=== PATIENT | female | born 1960 | race Caucasian/White ===

== ENCOUNTER 2016-09-15 09:44 | Outpatient (CLI) | payer BC ==
[2015-02-01 10:28] VITALS: O2SAT 97
== END 2016-09-15 09:45 | disposition home or self-care (01) ==
LOC: CONVCARE 09:44
PROVIDERS: ATTEND Orthopaedic Surgery
DX: Z47.1 Aftercare following joint replacement surgery (principal); Z96.653 Presence of artificial knee joint, bilateral; M25.562 Pain in left knee
CPT/HCPCS: 73562

== ENCOUNTER 2017-04-13 08:20 | Outpatient (CLI) | payer BC ==
[2015-02-01 10:28] VITALS: O2SAT 97
== END 2017-04-13 08:21 | disposition home or self-care (01) ==
LOC: CONVCARE 08:20
PROVIDERS: ATTEND Orthopaedic Surgery
DX: M54.5 Low back pain (principal); M51.36 Other intervertebral disc degeneration, lumbar region; Z96.653 Presence of artificial knee joint, bilateral; M25.551 Pain in right hip; M25.552 Pain in left hip
CPT/HCPCS: 72120; 72148; 73502; 73562

== ENCOUNTER 2017-07-03 08:52 | Day surgery (SDC) | payer BC, OTHER ==
[2017-07-03 09:49] VITALS: TEMP 97.6
[2017-07-03] MEDS ORDERED: KETOROLAC TROMETHAMINE 30 MG/ML SOL ONE (09:58)
[2017-07-03] MEDS ORDERED: PROPOFOL 500 MG/50 ML EMU IV ONE (11:03)
[2017-07-03 12:15] VITALS: BP 125/72
[2017-07-03 12:36] VITALS: PULSE 49; RESP 20; O2SAT 99
== END 2017-07-03 12:43 | disposition home or self-care (01) | DRG 392 ==
LOC: SURG 08:52
PROVIDERS: ATTEND Internal Medicine Gastroenterology
DX: R13.10 Dysphagia, unspecified (principal); D12.0 Benign neoplasm of cecum; K31.7 Polyp of stomach and duodenum; K44.9 Diaphragmatic hernia without obstruction or gangrene; R19.7 Diarrhea, unspecified; R93.3 Abnormal findings on diagnostic imaging of other parts of digestive tract; Z83.71 Family history of colonic polyps; Z80.0 Family history of malignant neoplasm of digestive organs; K57.30 Diverticulosis of large intestine without perforation or abscess without bleeding; K64.8 Other hemorrhoids
CPT/HCPCS: 99001; J1885; J2001; J2704